=== PATIENT | female | born 1955 | race Caucasian/White ===

== ENCOUNTER 2018-12-07 13:04 | Outpatient (CLI) | payer OTHER ==
--- NOTE | 2018-12-07 13:40 | RAD ---
F3 views lateral lumbar spine including flexion, extension and neutral views. 3 lateral views lumbar spine demonstrate anterior osteophytes involving the L1, L2, L3 and L4 levels. No evidence of sanaz or retrolisthesis seen. No evidence of acute fractures or bony lesions seen. IMPRESSION: Multilevel anterior lumbar changes of spondylosis.
== END 2018-12-07 13:05 | disposition home or self-care (01) ==
LOC: RAD 13:04
PROVIDERS: ATTEND Nurse Practitioner Family
DX: M43.06 Spondylolysis, lumbar region (principal); M47.816 Spondylosis without myelopathy or radiculopathy, lumbar region
CPT/HCPCS: 72100

== ENCOUNTER 2019-08-22 08:09 | Outpatient (CLI) | payer MEDICARE ==
--- NOTE | 2019-08-22 09:11 | BD ---
EXAM: Bone densitometry using DEXA HISTORY: 64 yo female. Screening for postmenopausal osteoporosis FINDINGS: L1--bone mineral density 0.867 g/sq cm; T score -1.1 ; Z score 0.5 L2--bone mineral density 0.902 g/sq cm; T score -1.1 ; Z score 0.6 L3--bone mineral density 0.898 g/sq cm; T score -1.7 ; Z score 0.2 L4--bone mineral density 0.914 g/sq cm; T score -1.3 ; Z score 0.6 Total L1-L4--bone mineral density 0.896 g/sq cm; T score -1.4 ; Z score 0.4 Left femoral neck--bone mineral density0.607; T score -2.2 ; Z score -0.7 Total proximal left femur--bone mineral density 0.812; T score -1.1 ; Z score 0.2 The 10 year fracture risk for a major osteoporotic fracture is 9.8% and for a hip fracture is 1.8%. IMPRESSION: Osteopenia
== END 2019-08-22 08:10 | disposition home or self-care (01) ==
LOC: BICMAMMO 08:09
PROVIDERS: ATTEND Family Medicine
DX: Z13.820 Encounter for screening for osteoporosis (principal); Z78.0 Asymptomatic menopausal state; M85.852 Other specified disorders of bone density and structure, left thigh
CPT/HCPCS: 77080